=== PATIENT | male | born 1940 | race Two or more races ===

== ENCOUNTER 2021-09-23 13:12 | Emergency (ER) | payer OTHER ==
[~2021-09-23] VITALS: Ht 165.1 cm; Wt 63.5 kg
--- NOTE | 2021-09-23 13:30 | NUR ---
LIT ORTIZ from [facility] "Was found sitting/ALOC/BS-20 Given D10". PT AAOX3, RR EVEN & UNLABORED. PLACED ON TOBACCO STEMMER MACHINE, AFIB. DR. BENAVIDES AT BS FOR EVAL. WILL CONT TO MONITOR.
--- NOTE | 2021-09-23 13:33 | NUR ---
CONTACTED [facility] FOR NOTIFICATION OF PT AND TO RECIEVE CLINICAL INFO.
[2021-09-23] MEDS ORDERED: LACT10SO3 PO (13:38)
[2021-09-23] MEDS ORDERED: FLUO40CA49 PO (13:38)
[2021-09-23] MEDS ORDERED: MELA5TAB PO (13:38)
[2021-09-23] MEDS ORDERED: FEXO180T94 PO (13:38)
[2021-09-23] MEDS ORDERED: CALC1TAB30 PO (13:38)
[2021-09-23] MEDS ORDERED: EZET10TA16 PO (13:38)
[2021-09-23] MEDS ORDERED: BENZ-13 PO (13:38)
[2021-09-23] MEDS ORDERED: TERA1CAP4 PO (13:38)
[2021-09-23] MEDS ORDERED: FISH1CAP16 PO (13:38)
[2021-09-23] MEDS ORDERED: FLUT1BLS12 IH (13:38)
[2021-09-23] MEDS ORDERED: ACET-2605 PO (13:38)
[2021-09-23] MEDS ORDERED: ALEN70TA80 PO (13:38)
[2021-09-23] MEDS ORDERED: NITR0.4T48 SL (13:38)
[2021-09-23] MEDS ORDERED: ASPI-1420 PO (13:38)
[2021-09-23] MEDS ORDERED: TRAZ-257 PO (13:38)
[2021-09-23] MEDS ORDERED: DOCU-141 PO (13:38)
[2021-09-23] MEDS ORDERED: RISP0.2515 PO (13:38)
[2021-09-23] MEDS ORDERED: GLUC750C PO (13:38)
[2021-09-23] MEDS ORDERED: LORA-259 PO (13:38)
[2021-09-23] MEDS ORDERED: METO25TA20 PO (13:38)
[2021-09-23] MEDS ORDERED: LEVO100T9 PO (13:38)
[2021-09-23] MEDS ORDERED: ALBU8.5H8 IH (13:38)
[2021-09-23] MEDS ORDERED: ASCO100058 PO (13:38)
[2021-09-23] MEDS ORDERED: TIOT4MIS2 IH (13:38)
[2021-09-23] MEDS ORDERED: PSYL3.4P6 PO (13:38)
[2021-09-23] MEDS ORDERED: FURO-145 PO (13:38)
[2021-09-23] MEDS ORDERED: MULT-24 PO (13:38)
[2021-09-23] MEDS ORDERED: ONDANSETRON HCL/PF 4 MG/2 ML VIAL ONE (13:44)
--- NOTE | 2021-09-23 13:48 | NUR ---
MEDICATED PER ERMD ORDER, PT FABIO WELL.
[2021-09-23] MEDS ORDERED: IV NS 0.9% 500 ML BAG IV ONE (14:00)
[2021-09-23] MEDS ORDERED: ONDANSETRON HCL/PF - ER 4 MG/2 ML VIAL IV ONE (14:00)
--- NOTE | 2021-09-23 14:00 | NUR ---
PT TO CT VIA [facility].
[2021-09-23 14:35] LABS: BASOPHILS % (AUTO) 0.3 % (0.0-2.0); EOSINOPHILS % (AUTO) 0.1 % (0.0-6.0); HEMATOCRIT 31 % (39-51); LYMPHOCYTES # (AUTO) 0.6 K/uL (0.8-4.8); LYMPHOCYTES % (AUTO) 3.6 % (20.0-44.0); MEAN CORPUSCULAR HGB CONC 32 g/dl (31.0-36.0); MEAN CORPUSCULAR VOLUME 101 fL (80-96); MONOCYTES # (AUTO) 1.3 K/uL (0.1-1.30); MONOCYTES % (AUTO) 8.1 % (2.0-12.0); NEUTROPHILS # (AUTO) 13.9 K/uL (1.8-8.9); NEUTROPHILS % (AUTO) 87.9 % (43.0-81.0); PLATELET COUNT (AUTO) 208 K/uL (150-450); RED BLOOD CELL COUNT(AUTO) 3.05 MIL/uL (4.5-6.0); WHITE BLOOD COUNT (AUTO) 15.9 K/uL (4.3-11.0)
[2021-09-23 14:46] LABS: CALCIUM, SERUM 8.1 mg/dL (8.5-10.1); CARBON DIOXIDE 18 mmol/L (21-32); CHLORIDE 110 mmol/L (98-107); CREATININE 1.4 mg/dL (0.6-1.3); GLUCOSE 82 mg/dL (74-106); POTASSIUM 4.7 mmol/L (3.5-5.1); SODIUM SERUM 139 mmol/L (136-145); UREA NITROGEN, BLOOD 63 mg/dL (7-18)
[2021-09-23 14:53] LABS: ALANINE AMINOTRANSFERASE 30 U/L (12-78); ALBUMIN 2.8 g/dL (3.4-5.0); ALKALINE PHOSPHATASE 98 U/L (46-116); ASPARTATE AMINOTRANSFERASE 25 U/L (15-37); BILIRUBIN,DIRECT 0.1 mg/dL (0.0-0.2); BILIRUBIN,TOTAL 0.2 mg/dL (0.2-1.0); TOTAL PROTEIN, SERUM 5.5 g/dL (6.4-8.2)
[2021-09-23 15:19] LABS: ABG BASE EXCESS -6.2 mmol/L; ABG PCO2 23.3 mmHg (35.0-45.0); ABG PH 7.461 (7.350-7.450); ABG PO2 66.3 mmHg (75.0-100.0); COHb 0.3 % (0.5-1.5); MetHb 0.2 % (0.0-1.5); O2Hb 92.6 % (94.0-97.0); SITE, ABG Right Radial; VENT MODE, BG ROOM AIR
--- NOTE | 2021-09-23 15:44 | NUR ---
PT ACCEPTED BY DR AVILEZ, AWAITING A CALL BACK.
[2021-09-23] MEDS ORDERED: IV NS 0.9% 1,000 ML IV ONE (16:00)
[2021-09-23 16:29] LABS: BILIRUBIN,URINE NEGATIVE (NEGATIVE); COLOR,URINE YELLOW (YELLOW); LEUKOCYTE ESTERASE ,URINE NEGATIVE (NEGATIVE); NITRITE, URINE NEGATIVE (NEGATIVE); PH,URINE 5.5 (5.0-8.0); PROTEIN,URINE NEGATIVE (NEGATIVE); UGLUCOSE 500 MG/DL mg/dL (NEGATIVE); UROBILINOGEN,URINE 0.2 EU/dL (0.2)
[2021-09-23] MEDS ORDERED: PIPERACILLIN /TAZOBACTAM 3.375 G in IV D5W 50 ML IV ONE (16:30)
[2021-09-23] MEDS ORDERED: IV NS 0.9% 1,000 ML BAG IV ONE (16:30)
[2021-09-23 16:40] LABS: BACTERIA,URINE None seen /HPF (None Seen); RBC,URINE 0-2 /HPF (0-2); WBC,URINE 0-2 /HPF (0-3)
--- NOTE | 2021-09-23 16:45 | NUR ---
DR AVILEZ AND DR GONZALEZ ON THE PHONE.
[2021-09-23] MEDS ORDERED: IV 10% DEXTROSE 1,000 ML IV PRN (18:00)
--- NOTE | 2021-09-23 18:05 | NUR ---
FOLLOWED UP WITH [facility] ABOUT PT PLACEMENT AND ETA. NO UPDATE SO FAR. WILL CALL BACK AT 1900.
--- NOTE | 2021-09-23 18:29 | NUR ---
PT ASLEEP, EASILY AWAKEN BY VERBAL STIMULI & WILL GO BACK TO SLEEP. RR EVEN & UNLABORED. ON TELE, ST. NAD NOTED AT THIS TIME. WILL CONT TO MONITOR. SON AT BS.
--- NOTE | 2021-09-23 19:17 | NUR ---
PT WAS ASSISTED W/ URINAL; 200 ML CLEAR URINE OUTPUT
--- NOTE | 2021-09-23 19:27 | NUR ---
FOLLOWED UP WITH [facility]. PT ACCEPTED AT [facility] PENDING ROOM NUMBER, TELE BED. THEY WILL CALL BACK WITH ROOM ASSIGMENT.
--- NOTE | 2021-09-23 21:00 | NUR ---
PT ACCEPTED TO [facility] ER BY DR NAIDU. # FOR REPORT [phone]. [facility] ETA [id number]
--- NOTE | 2021-09-23 21:35 | NUR ---
REPORT GIVEN TO SERGEY NEWMAN FOR CONTINUATION OF CARE.
[2021-09-23 22:12] VITALS: BP 98/49
--- NOTE | 2021-09-23 22:13 | NUR ---
PICKED UP BY [facility] TRANSPORTED ON SALES [facility]. ALL V/S STABLE AT TIME OF TRANSFER. PT PAPERWORK AND TRANSFER SHEET TRANSPORTED WITH UNIT.
== END 2021-09-23 22:18 | disposition short-term general hospital (02) ==
LOC: ER 13:17
DX: R41.82 Altered mental status, unspecified (principal); E87.2 Acidosis; N17.9 Acute kidney failure, unspecified; Z20.822 Contact with and (suspected) exposure to COVID-19; E11.649 Type 2 diabetes mellitus with hypoglycemia without coma; Z86.73 Personal history of transient ischemic attack (TIA), and cerebral infarction without residual deficits; Z88.8 Allergy status to other drugs, medicaments and biological substances; Z91.030 Bee allergy status; Z95.1 Presence of aortocoronary bypass graft; F41.1 Generalized anxiety disorder; J44.9 Chronic obstructive pulmonary disease, unspecified; I25.2 Old myocardial infarction; F03.90 Unspecified dementia, unspecified severity, without behavioral disturbance, psychotic disturbance, mood disturbance, and anxiety; I11.0 Hypertensive heart disease with heart failure; I50.9 Heart failure, unspecified; N40.1 Benign prostatic hyperplasia with lower urinary tract symptoms; N39.498 Other specified urinary incontinence
CPT/HCPCS: 36415; 36600; 70450; 71045; 80048; 80076; 81001; 82803; 82962 ×4; 83605 ×2; 84145; 84484; 85025; 85730; 87040 ×2; 87086; 87426; 93005; 96361; 96365; 96375; 99291; C9803; J2405 ×2; J2543; J7030 ×2; J7040; J7060; J3490